=== PATIENT | male | born 1975 | race Hispanic/Latino ===

== ENCOUNTER 2017-02-26 23:14 | Emergency (ER) | payer MEDICAID ==
[2017-02-27] MEDS ORDERED: NACL 0.9% 1000 ML 1,000 ML ONE
[2017-02-27] MEDS ORDERED: NACL 0.9% 1000 ML 2,000 ML IV ONE (01:36)
--- NOTE | 2017-02-27 01:42 | Emergency Department Report ---
ED General Adult HPI - General Chief complaint: Alcohol Stated complaint: ETOH Time Seen by Provider: 02/27/17 01:28 Source: patient, EMS (ems notes not available at time of chart dictation), RN notes reviewed Mode of arrival: Stretcher Limitations: Physical Limitation, Other (patient is intoxicated and is a poor historian) - History of Present Illness Initial comments: This is a 41-year-old male. He is previously unknown to me. His primary care doctor is Dr. Chan Whitley. The patient has a past medical history of seizure, traumatic brain injury, psychosis, typically gets around in a wheelchair. The patient is sent to the ER for alcohol intoxication. The patient reports that he drove his wheelchair over to a store, and purchase alcohol. He did not hit his head. He did not hit his neck. The patient indicates that he had 2 beers. Triage nurse documentation indicates that long-term staff discovered him missing at 2200 tonight. Apparently when they took with the patient's Rhys, he became aggressive and combative. To me, the patient denies headache, neck pain, chest pain, abdominal pain and shortness of breath. He denies homicidality and suicidality. He denies fevers and chills, and irritative and obstructive urinary symptoms. He reports chronic leg weakness which is not new, worsening or different. -: unknown Severity scale (0 -10): 0 Consistency: constant Improves with: none Worsens with: none Associated Symptoms: confusion, other (patient is intoxicated) - Related Data Home Medications Medication Instructions Recorded Confirmed Last Taken Acetaminophen [Tylenol] 500 mg PO Q6HR 02/26/17 02/26/17 Unknown Divalproex ER [DepaKOTE ER] 500 mg PO QAM 02/26/17 02/26/17 Unknown risperiDONE [RisperDAL] 0.5 mg PO QDAY 02/26/17 02/26/17 Unknown Allergies Allergy/AdvReac Type Severity Reaction Status Date / Time No Known Allergies Allergy Unverified 03/09/14 17:04 ED Review of Systems ROS: Stated complaint: ETOH Other details as noted in HPI Comment: Unobtainable due to pts medical conditions ED Past Medical Hx - Past Medical History Previous Medical History?: Yes Hx Seizures: Yes (secondary to TBI) 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 - Surgical History Past Surgical History?: No - Social History Smoking Status: Current Every Day Smoker Substance Use Type: Alcohol - Medications Home Medications: Home Medications Medication Instructions Recorded Confirmed Last Taken Type Acetaminophen [Tylenol] 500 mg PO Q6HR 02/26/17 02/26/17 Unknown History Divalproex ER [DepaKOTE ER] 500 mg PO QAM 02/26/17 02/26/17 Unknown History risperiDONE [RisperDAL] 0.5 mg PO QDAY 02/26/17 02/26/17 Unknown History ED Physical Exam - General Limitations: Other (patient is intoxicated) General appearance: lethargic, other (patient is intoxicated, has alcohol on breath) - Head Head exam: Present: atraumatic, normocephalic - Eye Eye exam: Present: normal appearance, PERRL, EOMI. Absent: nystagmus - ENT ENT exam: Present: normal exam, normal orophraynx, mucous membranes moist, normal external ear exam - Neck Neck exam: Present: normal inspection, full ROM. Absent: tenderness, meningismus - Respiratory Respiratory exam: Present: normal lung sounds bilaterally. Absent: respiratory distress, wheezes, rales, rhonchi, stridor, chest wall tenderness, accessory muscle use, decreased breath sounds - Cardiovascular Cardiovascular Exam: Present: regular rate, normal rhythm, normal heart sounds. Absent: bradycardia, tachycardia, irregular rhythm, systolic murmur, diastolic murmur, rubs, gallop - GI/Abdominal GI/Abdominal exam: Present: soft, normal bowel sounds. Absent: distended, tenderness, guarding, rebound, rigid, pulsatile mass - Rectal Rectal exam: Present: deferred - Extremities Exam Extremities exam: Present: normal inspection, full ROM, normal capillary refill. Absent: pedal edema, joint swelling, calf tenderness - Back Exam Back exam: Present: normal inspection, full ROM. Absent: tenderness, CVA tenderness (R), CVA tenderness (L), muscle spasm, paraspinal tenderness, vertebral tenderness - Neurological Exam Neurological exam: Present: alert (the patient is alert to name, year, location (knows that it is a Hospital)), other (there is no facial droop. The tongue is midline. Extraocular movements are intact bilaterally. Sensation is intact to light touch in 4 extremities. There is 5/5 strength in for 4 extremities) - Psychiatric Psychiatric exam: Present: flat affect. Absent: homicidal ideation, suicidal ideation - Skin Skin exam: Present: warm, dry, intact, normal color. Absent: rash ED Course Vital Signs 02/26/17 02/27/17 02/27/17 23:51 00:01 02:05 Temperature 98.1 F 97.8 F 99 F Pulse Rate 71 71 70 Respiratory 16 16 18 Rate Blood Pressure Blood Pressure 94/57 [Right] O2 Sat by Pulse 97 95 96 Oximetry 02/27/17 02/27/17 02/27/17 02:43 02:44 02:45 Temperature Pulse Rate 73 Respiratory 9 L Rate Blood Pressure 111/69 Blood Pressure [Right] O2 Sat by Pulse 98 98 98 Oximetry 02/27/17 02/27/17 02/27/17 02:46 02:48 02:50 Temperature Pulse Rate 72 75 85 Respiratory 14 17 14 Rate Blood Pressure 111/69 111/69 111/69 Blood Pressure [Right] O2 Sat by Pulse 98 97 97 Oximetry 02/27/17 02/27/17 02/27/17 02:52 02:53 03:38 Temperature Pulse Rate 74 75 Respiratory 9 L 13 Rate Blood Pressure 111/69 111/69 111/69 Blood Pressure [Right] O2 Sat by Pulse 98 97 98 Oximetry 02/27/17 02/27/17 02/27/17 03:39 03:40 03:42 Temperature Pulse Rate 69 69 76 Respiratory 16 12 12 Rate Blood Pressure 103/64 103/64 103/64 Blood Pressure [Right] O2 Sat by Pulse 97 96 97 Oximetry 02/27/17 02/27/17 02/27/17 03:44 03:46 03:48 Temperature Pulse Rate 75 71 71 Respiratory 14 13 13 Rate Blood Pressure 103/64 103/64 103/64 Blood Pressure [Right] O2 Sat by Pulse 97 98 97 Oximetry 02/27/17 02/27/17 02/27/17 03:50 03:52 03:54 Temperature Pulse Rate 73 67 69 Respiratory 13 13 13 Rate Blood Pressure 103/64 103/64 103/64 Blood Pressure [Right] O2 Sat by Pulse 99 96 97 Oximetry 02/27/17 02/27/17 02/27/17 03:56 03:58 04:00 Temperature Pulse Rate 72 90 81 Respiratory 19 13 13 Rate Blood Pressure 103/64 103/64 108/59 Blood Pressure [Right] O2 Sat by Pulse Oximetry 02/27/17 02/27/17 02/27/17 04:02 04:04 04:06 Temperature Pulse Rate 70 67 67 Respiratory 16 14 14 Rate Blood Pressure 108/59 108/59 108/59 Blood Pressure [Right] O2 Sat by Pulse 100 100 99 Oximetry 02/27/17 02/27/17 02/27/17 04:08 04:12 04:14 Temperature Pulse Rate 68 66 66 Respiratory 14 12 13 Rate Blood Pressure 108/59 111/69 111/69 Blood Pressure [Right] O2 Sat by Pulse Oximetry 02/27/17 02/27/17 02/27/17 04:16 04:18 04:20 Temperature Pulse Rate 77 73 77 Respiratory 12 12 10 L Rate Blood Pressure 111/69 111/69 111/69 Blood Pressure [Right] O2 Sat by Pulse Oximetry 02/27/17 02/27/17 02/27/17 04:22 04:24 04:26 Temperature Pulse Rate 67 69 70 Respiratory 12 13 12 Rate Blood Pressure 111/69 111/69 101/66 Blood Pressure [Right] O2 Sat by Pulse Oximetry 02/27/17 02/27/17 04:28 04:30 Temperature Pulse Rate 71 74 Respiratory 12 12 Rate Blood Pressure 101/66 101/66 Blood Pressure [Right] O2 Sat by Pulse Oximetry - Reevaluation(s) Reevaluation #1: 02/27/17 02:08 differential diagnosis: Dehydration, alcohol intoxication, pneumonia, urinary tract infection, intracranial injury, cervical spine injury, electrolyte derangement Assessment and plan: 41-year-old male who is intoxicated, found to be hypotensive incidentally with a blood pressure 83/48. The patient is not homicidal or suicidal, but he does not exhibit decision-making capacity at this time. He initially refused medical intervention, and is given Haldol and Ativan to facilitate cooperation with medical diagnostic workup. X-ray of the chest is grossly unremarkable, laboratory studies are pending, noncontrast CT scan of the brain and cervical spine pending, urinalysis pending, he is given 2 L of IV fluid. Reevaluation #2: 02/27/17 03:52 and blood pressure improved in the low 100s. Laboratory studies unremarkable, with the exception of slightly elevated lactic acid, this is most likely secondary to tourniquet time. Patient's CT scans were negative. X-ray of the chest is negative. Patient will be observed for a little bit longer. Reevaluation #3: 02/27/17 05:50 patient was observed in the ER for a prolonged period of time. He was given D5 half-normal, D50, and was able to eat multiple items. His fingerstick improved to greater than 180. He is sleeping comfortably. At this point in time, does not appear that the patient requires admission to the hospital. He will be discharged back to his care facility. ED Medical Decision Making - Lab Data Result diagrams: 02/27/17 02:27 02/27/17 02:27 Vital Signs 02/26/17 02/27/17 02/27/17 23:51 00:01 02:05 Temperature 98.1 F 97.8 F 99 F Pulse Rate 71 71 70 Respiratory 16 16 18 Rate Blood Pressure 94/57 [Right] O2 Sat by Pulse 97 95 96 Oximetry - Radiology Data Radiology results: image reviewed interpreted by me: X-ray of the chest is negative for acute disease. CT scan of the brain is negative. CT scan of the cervical spine is negative. Critical care attestation.: If time is entered above; I have spent that time in minutes in the direct care of this critically ill patient, excluding procedure time. ED Disposition Clinical Impression: Alcohol intoxication Disposition: DC/TX ANOTHER TYPE HEALTHCARE Is pt being admited?: No Does the pt Need Aspirin: No Condition: Good Instructions: Abuse of Alcohol (ED), Polysubstance Abuse (ED) Additional Instructions: Discontinue alcohol consumption. it is bad for your health Follow-up with the primary care doctor within the next week. Return to the ER right away with fevers or chills, chest pain or shortness of breath, intractable nausea or vomiting, homicidality, suicidality. Referrals: WILLIE KHANNA MD [Primary Care Provider] - 3-5 Days TAMICA PHILLIPS MD [Staff Physician] - 3-5 Days [facility] [Provider Group] - 3-5 Days
[2017-02-27] MEDS ORDERED: HALDOL IM ONE (01:44)
[2017-02-27] MEDS ORDERED: ATIVAN IV ONE (01:44)
--- NOTE | 2017-02-27 02:12 | XRay Report ---
FINAL REPORT EXAM: XR CHEST 1V AP HISTORY: weakness hypotension COMPARISON: None available. FINDINGS: Frontal view(s) of the chest obtained. Cardiac silhouette within normal limits. No gross consolidation or effusion. No pneumothorax. IMPRESSION: No grossly acute findings.
[2017-02-27 02:20] LABS: Bilirubin,Urine NEG (Negative); Blood,Urine NEG (Negative); Ketones,Urine NEG (Negative); Leukocyte Esterase,Urine NEG (Negative); Nitrite,Urine NEG (Negative); Protein,Urine <15 mg/dL mg/dL (Negative); Urobilinogen,Urine < 2.0 mg/dL (<2.0)
[2017-02-27 03:13] LABS: Basophils % (Auto) 0.3 % (0.0-1.8); Hematocrit 41.2 % (35.5-45.6); Hemoglobin 13.9 gm/dl (11.8-15.2); Mean Corpuscular HGB Conc 34 % (32-34); Mean Corpuscular Hemoglobin 32 pg (28-32); Mean Corpuscular Volume 95 fl (84-94); Platelet Count 192 K/mm3 (140-440); Red Blood Count 4.32 M/mm3 (3.65-5.03); Red Cell Distribution Width 13.7 % (13.2-15.2); White Blood Count 9.7 K/mm3 (4.5-11.0)
--- NOTE | 2017-02-27 03:31 | Cat Scan Report ---
FINAL REPORT EXAM: CT HEAD/BRAIN WO CON HISTORY: etoh weakness COMPARISON: None available. TECHNIQUE: Axial images obtained skull base through vertex. FINDINGS: No acute intracranial hemorrhage, midline shift or pathologic extra axial fluid collection. Mild volume loss with compensatory dilatation of the ventricular system advanced for patient age. Blake-differentiation preserved. Calvarium grossly intact. Visualized para-nasal sinuses and mastoid air cells are clear. Visualized orbits are grossly unremarkable. IMPRESSION: No grossly acute intracranial abnormality. Mild volume loss advanced for patient age.
[2017-02-27 03:35] LABS: Alanine Aminotransferase 6 units/L (7-56); Albumin 3.7 g/dL (3.9-5); Albumin/Globulin Ratio 1.4 %; Alkaline Phosphatase 49 units/L (35-129); Anion Gap 20 mmol/L; BUN/Creatinine Ratio 11.66; Bilirubin,Total 0.3 mg/dL (0.1-1.2); Blood Urea Nitrogen 7 mg/dL (9-20); Calcium 8.5 mg/dL (8.4-10.2); Carbon Dioxide 23 mmol/L (22-30); Chloride 101.1 mmol/L (98-107); Creatine Kinase 314 units/L (55-170); Glucose 72 mg/dL (75-100); Magnesium 1.9 mg/dL (1.7-2.3); Potassium 3.8 mmol/L (3.6-5.0); Sodium 140 mmol/L (137-145); Total Protein 6.3 g/dL (6.3-8.2)
[2017-02-27] MEDS ORDERED: D50W (25GM) IV ONE (03:52)
--- NOTE | 2017-02-27 03:52 | Cat Scan Report ---
FINAL REPORT EXAM: CT CERVICAL SPINE WO CON HISTORY: etoh weakness COMPARISON: None available. TECHNIQUE: Axial images obtained through the cervical spine. Additional sagittal and coronal reformatted images were obtained. FINDINGS: Normal lordotic curvature of the cervical spine. Cervical vertebral body heights are preserved. No acute fracture or traumatic subluxation. Odontoid process, articular pillars and occipital condyles are intact. No significant bony encroachment upon the canal or foramen. Mild anterior endplate osteophyte throughout the majority the cervical spine. Mild paraseptal emphysema at the lung apices. IMPRESSION: No acute fracture or subluxation of the cervical spine.
[2017-02-27] MEDS ORDERED: D5/0.45NS 1,000 ML IV SCH (05:00)
[2017-02-27 10:41] VITALS: BP 112/62
== END 2017-02-27 10:00 | disposition other institution (70) ==
LOC: ED 23:14
DX: F10.129 Alcohol abuse with intoxication, unspecified (principal); F17.200 Nicotine dependence, unspecified, uncomplicated
CPT/HCPCS: 36415; 70450; 71010; 72125; 80053; 80164; 81001; 82140; 82550; 82962; 83735; 85025; 96361; 96372; 96374; 96375; 99285; G0480; J1630; J2060; J7030; 80320

== ENCOUNTER 2017-03-04 17:38 | Emergency (ER) | payer MEDICAID ==
--- NOTE | 2017-03-04 20:22 | Emergency Department Report ---
ED Fall HPI - General Chief Complaint: Fall Stated Complaint: FALL Time Seen by Provider: 03/04/17 20:01 Source: patient, EMS Mode of arrival: Stretcher - History of Present Illness Initial Comments: Patient is a 38-year-old male with a history of TBI and left-sided deficits who presents from arrowhead status post fall from wheelchair. Patient reports he had 2 beers today and fell forward out of his wheelchair. Patient denies LOC, head injury, and remembers the entire episode. Currently patient has no complaints. 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 Fall Witnessed: yes, by living facility s Place Fall Occurred: home Loss of Consciousness: none Prolonged Down Time?: no Symptoms Prior to Fall: none Severity: mild Severity scale (0 -10): 0 Context: alcohol use - Related Data Home Medications Medication Instructions Recorded Confirmed Last Taken Acetaminophen [Tylenol] 500 mg PO Q6HR 02/26/17 03/04/17 Unknown Divalproex ER [DepaKOTE ER] 500 mg PO QAM 02/26/17 03/04/17 Unknown risperiDONE [RisperDAL] 0.5 mg PO QDAY 02/26/17 03/04/17 Unknown Allergies Allergy/AdvReac Type Severity Reaction Status Date / Time No Known Allergies Allergy Unverified 03/09/14 17:04 ED Review of Systems ROS: Stated complaint: FALL Other details as noted in HPI Comment: All other systems reviewed and negative ED Past Medical Hx - Past Medical History Previous Medical History?: Yes Hx Seizures: Yes (secondary to TBI) 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 - Surgical History Past Surgical History?: No - Social History Smoking Status: Current Some Day Smoker Substance Use Type: Alcohol - Medications Home Medications: Home Medications Medication Instructions Recorded Confirmed Last Taken Type Acetaminophen [Tylenol] 500 mg PO Q6HR 02/26/17 03/04/17 Unknown History Divalproex ER [DepaKOTE ER] 500 mg PO QAM 02/26/17 03/04/17 Unknown History risperiDONE [RisperDAL] 0.5 mg PO QDAY 02/26/17 03/04/17 Unknown History ED Physical Exam - General Limitations: Physical Limitation (patient is wheelchair bound with TBI and left sided deficits) General appearance: alert, in no apparent distress - Head Head exam: Present: atraumatic, normocephalic - Eye Eye exam: Present: normal appearance - ENT ENT exam: Present: mucous membranes moist - Neck Neck exam: Present: normal inspection - Respiratory Respiratory exam: Present: normal lung sounds bilaterally. Absent: respiratory distress - Cardiovascular Cardiovascular Exam: Present: regular rate, normal rhythm. Absent: systolic murmur, diastolic murmur, rubs, gallop - GI/Abdominal GI/Abdominal exam: Present: soft, normal bowel sounds - Extremities Exam Extremities exam: Present: normal inspection, normal capillary refill. Absent: tenderness, pedal edema, joint swelling - Back Exam Back exam: Present: normal inspection. Absent: tenderness, paraspinal tenderness, vertebral tenderness - Neurological Exam Neurological exam: Present: alert, CN II-XII intact, abnormal gait (this is his baseline) - Psychiatric Psychiatric exam: Present: normal affect - Skin Skin exam: Present: warm, dry, intact, normal color. Absent: rash ED Course Vital Signs 03/04/17 03/04/17 19:54 19:57 Temperature 98.1 F Pulse Rate 78 Respiratory 20 20 Rate Blood Pressure 100/60 [Right] O2 Sat by Pulse 99 Oximetry ED Medical Decision Making - Radiology Data Radiology results: report reviewed CT head: No acute intracranial pathology Critical care attestation.: If time is entered above; I have spent that time in minutes in the direct care of this critically ill patient, excluding procedure time. ED Disposition Clinical Impression: Fall Disposition: DISCHARGED TO HOME OR SELFCARE Is pt being admited?: No Condition: Stable Referrals: PRIMARY CARE, [Primary Care Provider] - 3-5 Days
--- NOTE | 2017-03-04 21:02 | Cat Scan Report ---
FINAL REPORT PROCEDURE: CT HEAD/BRAIN WO CON TECHNIQUE: Computerized tomography of the head was performed without contrast material. HISTORY: head injury and pain COMPARISON: 02/27/2017 FINDINGS: There are moderate diffuse involutional changes, with prominence of the ventricles and the sulci. The intracranial arteries are symmetric in density. There is no CT evidence of acute intracranial mass, hemorrhage, acute territorial infarction, or hydrocephalus. The calvarium is intact. There is mucosal thickening within bilateral sphenoid sinuses. IMPRESSION: No CT evidence of acute intracranial abnormality. Sinus disease
[2017-03-05 00:51] VITALS: BP 110/72
== END 2017-03-05 00:53 | disposition home or self-care (01) ==
LOC: ED 17:38
DX: Z04.3 Encounter for examination and observation following other accident (principal); Z72.0 Tobacco use; W05.0XXA Fall from non-moving wheelchair, initial encounter; Y93.89 Activity, other specified; Y99.8 Other external cause status; Y92.009 Unspecified place in unspecified non-institutional (private) residence as the place of occurrence of the external cause
CPT/HCPCS: 70450; 82962